=== PATIENT | female | born 1950 | race Caucasian/White ===

== ENCOUNTER 2017-06-24 00:44 | Inpatient (IN) | payer OTHER ==
[~2017-06-24] VITALS: Ht 165.1 cm; Wt 122.5 kg
--- NOTE | ~2017-06-24 | H ---
[facility] [place] [address] HISTORY AND PHYSICAL Name: BRIGITTE WHITE Room #: 453-P ADM IN M.R.#: [id number] Admission: 06/24/17 Attend Phys: Noah Hope MD Discharge: Date of : 54 Report #: [id number] THIS REPORT FOR: //name// CC: Noah Flores DATE OF SERVICE: 06/24/2017 ATTENDING PHYSICIAN: Dr. Hope. PRIMARY CARE PHYSICIAN: Dr. Michelet Flores. CHIEF COMPLAINT: Melena. HISTORY OF PRESENT ILLNESS: The patient is a 66-year-old female who was initially evaluated at [facility] for weakness. She states yesterday after having cardiac rehab, she was walking to her car and developed some midsternal chest tightness. She was able to get home and rest and her pain improved. She ate a meal. She then had at least 4 black watery stools throughout the afternoon. She was feeling dizzy and lightheaded whenever she was ambulating. Then at one point, she was in the bathroom and she felt too weak to stand up and thought she was going to pass out, so she slid herself on to the floor and was able to scoot on the floor to her phone where she called EMS. She was unable to stand up on her own because of the weakness. Once she arrived at [place], she had 2 episodes of melanotic stools. She denies any history of GI bleeding. She does not take any blood thinners other than a baby aspirin. She does have a history of lap band procedure and states she has a known hiatal hernia. She also has had some diffuse abdominal tenderness and has been feeling very bloated in the last 24 hours. She was transferred here to [facility] for further GI evaluation. She has not had any recurrence of the chest pressure she felt earlier in the day. Since arrival here at [facility], she has had one other melanotic stool and was slightly dizzy when she was up on the commode. PAST MEDICAL HISTORY: SVT, hypertension, GERD, depression and anxiety, fibromyalgia, arthritis, obstructive sleep apnea and previous history of diabetes. PAST SURGICAL HISTORY: Bilateral tubal ligation, bilateral total knee replacement, cholecystectomy, lap band in 2011, and bilateral ear stapedectomy, and a bladder implant for incontinence. ALLERGIES: FENOPROFEN, MELOXICAM, CELECOXIB and ASENAPINE. HOME MEDICATIONS: Benadryl 25 mg at bedtime, Zanaflex 4 mg p.o. t.i.d. p.r.n., Lipitor 40 mg p.o. daily, metoprolol 25 mg p.o. daily, sotalol 80 mg p.o. [address] [address] HISTORY AND PHYSICAL Name: BRIGITTE WHITE Room #: 453-P [facility] IN M.R.#: [id number] Admission: 06/24/17 Attend Phys: Noah Hope MD Discharge: Date of : 54 Report #: [id number] b.i.d., Norvasc 5 mg p.o. at bedtime, Percocet 5/325 one tab q 4 hours p.r.n., Lyrica 300 mg p.o. b.i.d., Cymbalta 60 mg p.o. b.i.d., Latuda 40 mg p.o. at bedtime, calcium and vitamin D 1 tab p.o. b.i.d., Flonase 2 sprays daily, Linzess 145 mcg p.o. 2 times per week, vitamin B12 monthly and vitamin B12 500 mcg p.o. daily, multivitamin daily, and aspirin 81 mg p.o. daily. SOCIAL HISTORY: The patient is an ex-smoker, having quit smoking 10 years ago after smoking less than 1 pack per day on and off for a total of 35 years. She also was a heavy drinker in the past, having been drinking daily hard alcohol as well as beer, she also quit that 10 years ago. She also has a history of drug use. She started smoking meth at the age of 42, up until she was 56 and has used cocaine in the past. She has not used any illicit drugs for the last 10 years. She does have 3 children, but she states that she lost the rights to her children many years ago and she currently does not know where they are. She lives alone. She does ambulate using a cane or a walker. FAMILY HISTORY: Her mother had diabetes and of congestive heart failure. Her father of stomach cancer. Her brother had brain cancer and a sister has cervical cancer. REVIEW OF SYSTEMS: The patient has been seen here in 2013 with a non-ST elevation KS. She had a catheterization at that time, which showed mild nonobstructive coronary artery disease and her EF was normal. She follows with Dr. Redmond with Cardiology. She states she still goes to cardiac rehab 3 times per week. She also has had a colonoscopy about 4-5 years ago, which was negative and she has had an EGD since her lap band procedure that has been negative other than the hiatal hernia. Twelve-point review of systems was reviewed with the patient and otherwise negative unless stated in the HPI. PHYSICAL EXAMINATION: GENERAL: The patient is an alert, obese female in no acute distress. VITAL SIGNS: Temperature is 36.6, heart rate 85, respirations 20, blood pressure 143/71, oxygen is 96% on room air. HEENT: PERRLA. Sclerae is nonicteric. Oral mucosa is pink and moist. NECK: Supple, no JVD noted. CARDIAC: Normal S1, S2. No murmurs, rubs or gallops. Heart tones are distant. ABDOMEN: Obese, but soft. She is diffusely tender. This was worse in the epigastric area as well as the left lower quadrant. Bowel sounds are hypoactive. VASCULAR: 1+ bilateral lower extremity edema, pedal pulses are 2+. NEUROLOGIC: The patient is alert and oriented x 3. Speech is clear. She is moving all extremities equally. No focal neuro deficits noted. SKIN: Intact. No rashes or lesions. LABORATORY AND DIAGNOSTIC DATA: Blood work done at [place] showed a WBC of 21, hemoglobin 10.7, platelets 393. Sodium 144, potassium 3.9, BUN 26, [facility] [address] [place] [address] HISTORY AND PHYSICAL Name: BRIGITTE WHITE Room #: 453-[facility] IN [facility]#: [id number] Admission: 06/24/17 Attend Phys: Noah Hope MD Discharge: Date of : 54 Report #: [id number] creatinine 0.8 and glucose is 203, magnesium 1.8. LFTs were within normal limits. Cardiac enzymes within normal limits. INR 1.2. BNP 514. UA showed moderate leukocyte esterase, 30-50 wbc's and 3+ bacteria and EKG showed sinus rhythm with a few PACs. ASSESSMENT AND PLAN: 1. Gastrointestinal bleed, likely coming from the upper bowels. She was given a Protonix bolus. We will continue with Protonix drip. Hold aspirin. Apparently the CT scanner at [place] was down and so she was unable to have a CT done prior to transfer. We will go ahead and check a CT of the abdomen for any acute findings. Gastroenterology is consulted. Keep n.p.o. until seen by Gastroenterology. 2. Anemia. I do not have any recent labs, but this is likely due to acute blood loss. We will check serial H and H and transfuse if needed. 3. Urinary tract infection. She does have significant leukocytosis, which could be due to the urinary tract infection. We will obtain a urine culture. Continue with Rocephin. 4. Hyperglycemia. The patient states that her diabetes did resolve after losing 100 pounds with her lap band. She is not on any current medications. We will check a hemoglobin A1c. 5. Mild dehydration. Her BUN is slightly elevated, may be due to gastrointestinal bleed. Continue with IV fluids and follow labs. 6. Hypertension. Blood pressure is stable. Since she is n.p.o., we will hold p.o. meds and add hydralazine p.r.n. 7. Deep venous thrombosis prophylaxis, place sequential compression devices. We will continue to follow the patient closely throughout the hospitalization and make changes based on clinical status. <ELECTRONICALLY SIGNED> By: JORGE Martinez 06/24/17 [id number] JORGE Martinez /edward
--- NOTE | ~2017-06-24 | S ---
[facility] [place] [address] SURGICAL PATH RPT PROCEDURE Name: CINDYMINDY Monte Room #: 453-P ADM IN M.R.#: [id number] Admission: 06/24/17 Date of : 54 Discharge: Report #: [id number] Path Case #: [id number] PATHOLOGY REPORT COLLECTION DATE: 06/24/2017 RECEIVED DATE: 06/24/2017 SUBMITTING PHYS: Dr. Jase Alaniz OTHER PHYS: Dr. Michelet Hope M.D. SPECIMEN(S) RECEIVED: A.Gastric ulcer R/O H pylori biopsy * * * * * * * * * * * * FINAL DIAGNOSIS: "Gastric ulcer R/O H. pylori biopsy", biopsy: - Gastric mucosa with reactive / regenerative changes, acute and chronic inflammation and ulcer; no dysplasia seen. - Negative H. pylori immunohistochemical stain (block A1); control reacted appropriately. (CLW:eliza; 06/25/2017) PATHOLOGIST: Elvi Solis M.D. REPORT ELECTRONICALLY SIGNED BY: Elvi Solis M.D. DATE/TIME: 06/25/2017 14:23 * * * * * * * * * * * * GROSS PATHOLOGY: Received in formalin labeled, "Cindy Mindy, gastric ulcer rule out H. pylori," are 3 fragments of burton soft tissue measuring between 0.1 x 0.1 x 0.1 cm and 0.4 x 0.2 x 0.2 cm. They are entirely submitted in cassette A1. (SDY; 06/24/2017) CLINICAL HISTORY: Melena, syncope, anemia Gastric ulcer, gastritis Rule out H. pylori INITIAL CPT CODE(S): A; 82263, 49758 [facility] [address], [place] [address] [facility] [address] [place] [address] SURGICAL PATH RPT PROCEDURE Name: MINDY WHITE Room #: 453-P ADM IN M.R.#: [id number] Admission: 06/24/17 Date of : 54 Discharge: Report #: [id number] Path Case #: [id number] Technical services performed by [facility] at [address] [place] [address], [address] [address]. [place] [address] PHONE: [phone] DIRECTOR: Alexander Mann M.D. * * * END OF REPORT * * *
[~2017-06-24 00:44] MED LIST: ASA81BEC PO; ATORVASTATIN CA40 MG PO; B-12500 MCG PO; BENADRYL25 MG PO; CALCIUM 600 +1 EAC1 PO; CARBAMAZEPINE100 MG PO; COMBIVENT RESPIM4 GM INH; CYANOCOBAL1000 MCG/1 IM; CYMBALTA60 MG PO; DETROL LA4 MG PO; FLONASE 0.05%50 MCG NASAL; LATUDA40 MG PO; LINZESS145 MCG PO; LYRICA300 MG PO; NEXIUM40 MG PO; NYSTATIN15 GM TOP; PERCOCET PO; TOPROL XL25 MG PO; TRINATE TABLET1 TAB PO
[2017-06-24 03:30] VITALS: BP 143/71
[2017-06-24] MEDS ORDERED: NORVASC5 MG PO (04:24)
[2017-06-24] MEDS ORDERED: SORINE 80 MG TA80 M1 PO (04:25)
[2017-06-24] MEDS ORDERED: ZANAFLEX4 MG PO (04:27)
[2017-06-24 06:16] LABS: HEMATOCRIT 29.9 % (37.0-47.0); HEMOGLOBIN 9.7 gm/dL (12.0-15.0); MCH 26.4 pg (26.0-34.0); MCHC 32.3 g/dL (28.0-37.0); MCV 81.6 fL (80.0-100.0); RBC 3.66 mil/uL (4.20-5.00)
[2017-06-24 06:27] LABS: INR 1.1; PROTIME 11.2 Seconds (9.3-11.4)
[2017-06-24 06:39] LABS: ALBUMIN 2.9 g/dL (3.4-5.0); ANION GAP 14 mmol/L (7-16); BUN 35 mg/dL (7-18); CALCIUM 9.6 mg/dL (8.5-10.1); CHLORIDE 107 mmol/L (98-107); CHOLESTEROL 108 mg/dL (<200); CO2 20 mmol/L (21-32); CREATININE 0.8 mg/dL (0.6-1.0); GLUCOSE 149 mg/dL (74-106); HDL CHOLESTEROL 43 mg/dL (>40); LDL CHOLESTEROL 44 mg/dL (<100); POTASSIUM 3.9 mmol/L (3.5-5.1); SGOT 16 U/L (15-37); SGPT 16 U/L (30-65); SODIUM 141 mmol/L (136-145); TC:HDL 2.5 Ratio (Not establshd); TOTAL BILIRUBIN 0.3 mg/dL (<0.1-1.0); TOTAL PROTEIN 6.1 g/dL (6.4-8.2); TRIGLYCERIDE 109 mg/dL (<150); TROPONIN-I < 0.04 ng/mL (<0.06); VLDL 22 mg/dL (<40)
[2017-06-24 06:40] LABS: SERUM ASSESSMENT Clear
[2017-06-24 08:02] VITALS: BP 149/66
[2017-06-24 11:43] LABS: HEMATOCRIT 27.3 % (37.0-47.0)
[2017-06-24 14:39] VITALS: BP 176/69
[2017-06-24 16:25] VITALS: BP 174/66
[2017-06-24 18:10] LABS: GLYCOHEMOGLOBIN (HGB A1C) 5.9 % (4.8-5.6)
[2017-06-24 18:35] LABS: HEMATOCRIT 25.5 % (37.0-47.0); HEMOGLOBIN 8.4 gm/dL (12.0-15.0)
[2017-06-24 19:28] VITALS: BP 171/63
[2017-06-24 22:16] LABS: HEMATOCRIT 22.9 % (37.0-47.0); HEMOGLOBIN 7.6 gm/dL (12.0-15.0)
[2017-06-24 23:55] VITALS: BP 144/65
[2017-06-25 04:09] VITALS: BP 149/82
[2017-06-25 08:00] VITALS: BP 172/65
[2017-06-25 09:29] LABS: HEMATOCRIT 24.9 % (37.0-47.0); HEMOGLOBIN 8.2 gm/dL (12.0-15.0); MCH 26.9 pg (26.0-34.0); MCHC 33.2 g/dL (28.0-37.0); RBC 3.07 mil/uL (4.20-5.00); RDW 16.1 % (10.5-14.5); WBC 10.3 thou/uL (4.0-11.0)
[2017-06-25 09:48] LABS: ALBUMIN 2.7 g/dL (3.4-5.0); CREATININE 0.6 mg/dL (0.6-1.0); POTASSIUM 3.8 mmol/L (3.5-5.1); TOTAL BILIRUBIN 0.4 mg/dL (<0.1-1.0); TOTAL PROTEIN 5.8 g/dL (6.4-8.2)
[2017-06-25 11:55] VITALS: BP 142/53
[2017-06-25 15:31] VITALS: BP 147/68
[2017-06-25 16:22] LABS: % SATURATION 10 % (20-39); IRON 31 ug/dL (50-170); TIBC 298 ug/dL (250-450)
[2017-06-25 21:50] VITALS: BP 144/58
[2017-06-26 05:29] VITALS: BP 145/58
[2017-06-26 06:52] LABS: HEMATOCRIT 22.4 % (37.0-47.0); HEMOGLOBIN 7.4 gm/dL (12.0-15.0); MCH 27.3 pg (26.0-34.0); MCHC 33.1 g/dL (28.0-37.0); MCV 82.3 fL (80.0-100.0); RBC 2.72 mil/uL (4.20-5.00); RDW 16.4 % (10.5-14.5); WBC 8.7 thou/uL (4.0-11.0)
[2017-06-26 07:04] LABS: ALBUMIN 2.5 g/dL (3.4-5.0); CALCIUM 8.6 mg/dL (8.5-10.1); CREATININE 0.6 mg/dL (0.6-1.0); PHOSPHORUS 3.8 mg/dL (2.5-4.9); POTASSIUM 3.5 mmol/L (3.5-5.1)
[2017-06-26 08:22] VITALS: BP 146/62
[2017-06-26] MEDS ORDERED: PROTONIX40 M2 PO (10:41)
[2017-06-26 11:47] VITALS: BP 146/62
[2017-06-26 14:25] VITALS: BP 146/62
== END 2017-06-26 14:30 | disposition home or self-care (01) | DRG 871 ==
LOC: 4W 00:44
PROVIDERS: Hospitalist; Internal Medicine Gastroenterology; Nurse Practitioner Acute Care
PROC: 0DB68ZX Excision of Stomach, Via Natural or Artificial Opening Endoscopic, Diagnostic (ICD-10-PCS; principal; 2017-06-24)
PROC: B548ZZA Ultrasonography of Superior Vena Cava, Guidance (ICD-10-PCS; principal; 2017-06-24)
PROC: 0D568ZZ Destruction of Stomach, Via Natural or Artificial Opening Endoscopic (ICD-10-PCS; principal; 2017-06-24)
PROC: 02HV33Z Insertion of Infusion Device into Superior Vena Cava, Percutaneous Approach (ICD-10-PCS; principal; 2017-06-24)
PROC: 3E0G8GC Introduction of Other Therapeutic Substance into Upper GI, Via Natural or Artificial Opening Endoscopic (ICD-10-PCS; principal; 2017-06-24)
DX: A41.9 Sepsis, unspecified organism (principal); E43 Unspecified severe protein-calorie malnutrition; K25.4 Chronic or unspecified gastric ulcer with hemorrhage; N39.0 Urinary tract infection, site not specified; Z68.41 Body mass index [BMI] 40.0-44.9, adult; D62 Acute posthemorrhagic anemia; I10 Essential (primary) hypertension; K21.9 Gastro-esophageal reflux disease without esophagitis; F41.9 Anxiety disorder, unspecified; M19.90 Unspecified osteoarthritis, unspecified site; G47.33 Obstructive sleep apnea (adult) (pediatric); E11.9 Type 2 diabetes mellitus without complications; Z96.653 Presence of artificial knee joint, bilateral; E11.65 Type 2 diabetes mellitus with hyperglycemia; E86.0 Dehydration; F31.9 Bipolar disorder, unspecified; E66.9 Obesity, unspecified; Z79.82 Long term (current) use of aspirin; Z79.899 Other long term (current) drug therapy; Z90.49 Acquired absence of other specified parts of digestive tract; Z88.8 Allergy status to other drugs, medicaments and biological substances; Z83.3 Family history of diabetes mellitus; Z82.49 Family history of ischemic heart disease and other diseases of the circulatory system; Z80.0 Family history of malignant neoplasm of digestive organs; Z80.8 Family history of malignant neoplasm of other organs or systems; Z80.59 Family history of malignant neoplasm of other urinary tract organ; Z87.891 Personal history of nicotine dependence; I25.2 Old myocardial infarction
CPT/HCPCS: 10045; 27000; 62110; 62900; 70005